=== PATIENT | female | born 1960 ===

== ENCOUNTER 2018-10-29 10:51 | Outpatient (CLI) | payer MEDICAID | END 2018-10-29 10:52 | disposition home or self-care (01) | LOC: C.LAB 10:51 ==

== ENCOUNTER → 2018-10-29 | Day surgery (SDC) | payer MEDICAID ==
[2018-10-26 11:31] VITALS: BMI 18.3
--- NOTE | 2018-11-01 11:44 | US ---
PROCEDURE: Date of procedure: 10/29/2018 Procedure: Limited ultrasound of neck for purposes of FNA HISTORY: Left neck mass TECHNIQUE: Limb ultrasound of patient's neck was performed for purposes of FNA and homogeneous mass is seen in left neck adjacent to the carotid artery with significant vascularity. FNA was not performed after discussing the case with the referring physician. IMPRESSION: Left neck mass with significant term vascularity adjacent carotid artery. FNA was not performed. The patient follow-up with referring physician and MRI will be performed.
== END | disposition home or self-care (01) ==
LOC: C.SPRAD 08:53
PROVIDERS: ATTEND Radiology Vascular & Interventional Radiology
DX: Z53.8 Procedure and treatment not carried out for other reasons (principal)

== ENCOUNTER 2018-11-09 13:16 | Outpatient (CLI) | payer MEDICAID | END 2018-11-09 13:17 | disposition home or self-care (01) | LOC: C.MRIC 13:16 ==

== ENCOUNTER 2018-11-26 15:32 | Outpatient (CLI) | payer MEDICAID | END 2018-11-26 15:33 | disposition home or self-care (01) | LOC: C.USIC 15:33 ==

== ENCOUNTER 2018-11-28 09:48 | Day surgery (SDC) | payer MEDICAID ==
[2018-10-26 11:31] VITALS: BMI 18.3
--- NOTE | 2018-11-28 10:35 | PCM.SURG1 ---
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 Post-Operative Diagnosis: Thyroid nodule Operation Performed: US guided FNA Specimen/Specimens Removed: 25 g FNA x 5 passes Estimated Blood Loss: EBL {In ML}: 0 Blood Products Given: N/A Drains Used: No Drains Post-Op Condition: Good Date of Surgery/Procedure: 11/28/18 Time of Surgery/Procedure: 10:30
--- NOTE | 2018-11-28 10:36 | CP.SDSHP ---
Same Day Surgery H & P - History Proposed Procedure: US guided FNA Pre-Op Diagnosis: Thyroid nodule - Allergies Allergies: Allergies No Known Allergies Allergy (Unverified 05/09/15 14:19) - Physical Exam Mental Status: Alert & Oriented x3 - Impression Impression: Hypervascular nodule left upper thyroid. Plan US guided FNA. Pt. Evaluated Today:Candidate for Anesthesia & Procedure: No Short Stay Discharge - Short Stay Discharge Admitting Diagnosis/Reason for Visit: DX: THYROID NODULE Disposition: HOME/ ROUTINE
--- NOTE | 2018-11-28 11:25 | US ---
PROCEDURE: Date of Procedure: 11/28/2018 PROCEDURE: 1. Ultrasound guided FNA of left thyroid nodule, CPT 73405 2. Ultrasound guidance for FNA, [id number] Medications: 3 cc 1% Lidocaine HISTORY: Enlarged left thyroid nodule. TECHNIQUE: Following informed consent and procedure time-out, a limited ultrasound patient's neck confirmed the presence of a 2.2 cm complex left thyroid nodule which is predominantly solid at the superior aspect of the left thyroid gland. After the patient's neck was prepped and draped in the usual sterile fashion, the skin was anesthetized with 1% lidocaine. Ultrasound-guided fine needle aspiration was then performed of the dominant left thyroid nodule. A total of 4 passes were made into the nodule with 25 gauge needle under ultrasound guidance. The FNA specimen was sent for routine pathology and genetics. Post biopsy ultrasound showed no hematoma. IMPRESSION: Ultrasound-guided FNA of the dominant left thyroid nodule.
== END 2018-11-28 11:29 | disposition home or self-care (01) ==
LOC: C.SPRAD 09:48
PROVIDERS: ATTEND Radiology Vascular & Interventional Radiology
DX: E04.1 Nontoxic single thyroid nodule (principal)